=== PATIENT | female | born 1955 | race Caucasian/White ===

== ENCOUNTER 2018-04-03 18:19 | Emergency (ER) | payer MEDICARE, BC ==
--- NOTE | 2018-04-03 20:48 | EDM.PDOC ---
ED HPI GENERAL MEDICAL PROBLEM - General Chief Complaint: Cardiovascular Problem Stated Complaint: HEART PALPATATIONS, DIZZINESS Time Seen by Provider: 04/03/18 18:45 Source of Information: Reports: Patient History Limitations: Reports: No Limitations - History of Present Illness INITIAL COMMENTS - FREE TEXT/NARRATIVE: pt arrived complaining of palpitations for the last 2 weeks. She had a prolonged episode today. She had no chest pain. Onset: Gradual, Other ( This has been going on for several days. ) Duration: Hour(s): Location: Reports: Chest Associated Symptoms: Reports: Other ( irregular heart beat, ) throat Pain Score (Numeric/FACES): 1 - Related Data Allergies Allergy/AdvReac Type Severity Reaction Status Date / Time adhesive tape Allergy Rash Verified 04/03/18 18:58 amoxicillin Allergy Hives Verified 04/03/18 18:58 Penicillins Allergy Hives Verified 04/03/18 18:58 scopolamine Allergy Rash Verified 04/03/18 18:58 vancomycin Allergy Redness Verified 04/03/18 18:58 varenicline [From Chantix] Allergy Rash Verified 04/03/18 18:58 varenicline tartrate Allergy Rash Verified 04/03/18 18:58 [From Chantix] venom-honey bee Allergy Itching Verified 04/03/18 18:58 [bee venom (honey bee)] atorvastatin calcium AdvReac Muscle Verified 04/03/18 18:58 [From Lipitor] Aches NSAIDS (Non-Steroidal AdvReac Nausea Verified 04/03/18 18:58 Anti-Inflamma Home Meds: Home Meds Ibuprofen [Advil] 600 mg PO Q6H PRN 06/03/13 [History] Loratadine [Claritin] 10 mg PO BID 06/03/13 [History] Simvastatin [Zocor] 20 mg PO BEDTIME 06/06/13 [History] buPROPion HCl [Wellbutrin SR] 300 mg PO DAILY 06/06/13 [History] Acetaminophen [Acetaminophen Extra Strength] 1,000 mg PO ASDIRECTED PRN [History] HCTZ/Triamterene [Maxzide 25-37.5 MG] 1 tab PO DAILY 01/28/14 [History] Ranitidine [Zantac] 75 mg PO BID 01/28/14 [History] Aspirin 325 mg PO DAILY 02/07/16 [History] Cholecalciferol (Vitamin D3) [Vitamin D3] 2,000 units PO DAILY 02/07/16 [History ] Gabapentin [Neurontin] 300 mg PO TID 02/07/16 [History] Krill/Om-3/DHA/EPA/Phospho/Ast [Krill Oil 1,000 mg Softgel] 1 cap PO DAILY 02/06 [History] Multivitamin with Minerals [Multiple Vitamin] 1 tab PO DAILY 02/07/16 [History] Ubidecarenone [Coenzyme Q10] 200 mg PO DAILY 02/07/16 [History] Citalopram Hydrobromide [Celexa] 20 mg PO DAILY 01/08/18 [History] Gluc 2KCl/Chondr/[place] Hy/Hy Ac [Glucosamine & Chondroitin Cap] 1 cap PO BID 09/15 [History] Turmeric/Turmeric Ext/Pepr Ext [Turmeric Complex 500 mg Cap] 1 tab PO DAILY 09/15 [History] guaiFENesin/Dextromethorphan [Mucus Relief DM] 1 tab PO BID 01/08/18 [History] Past Medical History HEENT History: Reports: Allergic Rhinitis, Impaired Vision Cardiovascular History: Reports: High Cholesterol, PVD Respiratory History: Reports: COPD, Sleep Apnea Gastrointestinal History: Reports: Colon Polyp, GERD, Hiatal Hernia Genitourinary History: Reports: UTI, Recurrent, Other (See Below) Other Genitourinary History: Bladder tumor/cancer MATHEMATICS LECTURER History: Reports: Dysfunctional Uterine Bleeding, , Spontaneous Musculoskeletal History: Reports: Arthritis, Back Pain, Chronic, Fracture Psychiatric History: Reports: Depression, Panic Attack Endocrine/Metabolic History: Reports: Diabetes, Type II, Obesity/BMI 30+ Hematologic History: Reports: Blood Transfusion(s) Oncologic (Cancer) History: Reports: Bladder - Infectious Disease History Infectious Disease History: Reports: Chicken Pox, Measles - Past Surgical History GI Surgical History: Reports: Cholecystectomy, Colonoscopy, EGD Female Surgical History: Reports: Hysterectomy, Salpingo-Oophorectomy Musculoskeletal Surgical History: Reports: Carpal Tunnel Social & Family History - Tobacco Use Smoking Status *Q: Current Every Day Smoker Years of Tobacco use: 43 Packs/Tins Daily: 0.7 - Caffeine Use Caffeine Use: Reports: Coffee - Recreational Drug Use Recreational Drug Use: No ED ROS GENERAL - Review of Systems Review Of Systems: See Below Constitutional: Reports: No Symptoms HEENT: Reports: No Symptoms Respiratory: Reports: Shortness of Breath Cardiovascular: Reports: Palpitations Endocrine: Reports: No Symptoms GI/Abdominal: Reports: No Symptoms : Reports: No Symptoms Musculoskeletal: Reports: No Symptoms Skin: Reports: No Symptoms ED EXAM, GENERAL - Physical Exam Exam: See Below Free Text/Narrative:: pt is alert and comfortaBLE APPEARING. sHE HAS BEEN HAVING PALITATIONS FOR THE PAST 2 WEEKS. Exam Limited By: No Limitations General Appearance: Alert, No Apparent Distress Ears: Normal TMs Nose: Normal Inspection Throat/Mouth: Normal Inspection Head: Atraumatic Neck: Normal Inspection Respiratory/Chest: No Respiratory Distress Cardiovascular: Regular Rate, Rhythm, Other (PT WAS NOT FOUND RICARDO HAVE IRREGULARITIES. ) GI/Abdominal: Soft, Non-Tender (Female) Exam: Deferred Rectal (Female) Exam: Deferred Back Exam: Normal Inspection Extremities: Normal Inspection Neurological: Alert, Oriented, Normal Cognition Psychiatric: Normal Affect Course - Vital Signs Last Recorded V/S: Last Vital Signs Temp 36.2 C 04/03/18 19:05 Pulse 74 04/03/18 20:00 Resp 16 04/03/18 20:00 BP 134/79 04/03/18 20:00 Pulse Ox 91 L 04/03/18 20:00 - Orders/Labs/Meds Orders: Active Orders 24 hr Category Date Time Status EKG Documentation Completion [RC] ASDIRECTED Care 04/03/18 18:47 Active UA W/MICROSCOPIC [URIN] Urgent Lab 04/03/18 18:47 Ordered EKG 12 Lead [EK] Routine Ther 04/03/18 18:47 Ordered Labs: Laboratory Tests 04/03/18 04/03/18 04/03/18 Range/Units 18:47 18:59 18:59 WBC 7.5 (4.5-11.0) K/uL RBC 4.99 (3.30-5.50) M/uL Hgb 15.9 H (12.0-15.0) g/dL Hct 45.7 (36.0-48.0) % MCV 92 (80-98) fL MCH 32 H (27-31) pg MCHC 35 (32-36) % Plt Count 201 (150-400) K/uL Neut % (Auto) 59 (36-66) % Lymph % (Auto) 30 (24-44) % [place] % (Auto) 10 H (2-6) % Eos % (Auto) 1 L (2-4) % Baso % (Auto) 0 (0-1) % Sodium (140-148) mmol/L Potassium (3.6-5.2) mmol/L Chloride (100-108) mmol/L Carbon Dioxide (21-32) mmol/L Anion Gap (5.0-14.0) mmol/L BUN (7-18) mg/dL Creatinine (0.6-1.0) mg/dL Est Cr Clr Drug Dosing mL/min Estimated GFR (MDRD) (>60) Glucose (74-106) mg/dL Calcium (8.5-10.1) mg/dL Total Bilirubin (0.2-1.0) mg/dL AST (15-37) U/L ALT (12-78) U/L Alkaline Phosphatase (46-116) U/L Troponin I (0.000-0.056) ng/mL Total Protein (6.4-8.2) g/dL Albumin (3.4-5.0) g/dL Globulin (2.3-3.5) g/dL Albumin/Globulin Ratio (1.2-2.2) TSH, Ultra Sensitive 0.850 (0.358-3.740) uIU/mL Urine Color Yellow Urine Appearance Clear Urine pH 7.0 (4.5-8.0) Ur Specific [place] 1.010 (1.008-1.030) Urine Protein Negative (NEGATIVE) mg/dL Urine Glucose (UA) Normal (NEGATIVE) mg/dL Urine Ketones Negative (NEGATIVE) mg/dL Urine Occult Blood Negative (NEGATIVE) Urine Nitrite Negative (NEGATIVE) Urine Bilirubin Negative (NEGATIVE) Urine Urobilinogen Normal (NORMAL) mg/dL Ur Leukocyte Esterase Negative (NEGATIVE) Urine RBC Not seen (0-5) Urine WBC 0-5 (0-5) Ur Epithelial Cells Few Urine Bacteria Few Urine Mucus Few 04/03/18 04/03/18 Range/Units 18:59 18:59 WBC (4.5-11.0) K/uL RBC (3.30-5.50) M/uL Hgb (12.0-15.0) g/dL Hct (36.0-48.0) % MCV (80-98) fL MCH (27-31) pg MCHC (32-36) % Plt Count (150-400) K/uL Neut % (Auto) (36-66) % Lymph % (Auto) (24-44) % [place] % (Auto) (2-6) % Eos % (Auto) (2-4) % Baso % (Auto) (0-1) % Sodium 138 L (140-148) mmol/L Potassium 4.3 (3.6-5.2) mmol/L Chloride 102 (100-108) mmol/L Carbon Dioxide 27 (21-32) mmol/L Anion Gap 13.3 (5.0-14.0) mmol/L BUN 9 D (7-18) mg/dL Creatinine 0.7 D (0.6-1.0) mg/dL Est Cr Clr Drug Dosing 72.88 mL/min Estimated GFR (MDRD) > 60 (>60) Glucose 94 (74-106) mg/dL Calcium 9.3 (8.5-10.1) mg/dL Total Bilirubin 0.3 (0.2-1.0) mg/dL AST 22 (15-37) U/L ALT 29 (12-78) U/L Alkaline Phosphatase 81 (46-116) U/L Troponin I < 0.017 (0.000-0.056) ng/mL Total Protein 7.0 (6.4-8.2) g/dL Albumin 3.4 (3.4-5.0) g/dL Globulin 3.6 H (2.3-3.5) g/dL Albumin/Globulin Ratio 0.9 L (1.2-2.2) TSH, Ultra Sensitive (0.358-3.740) uIU/mL Urine Color Urine Appearance Urine pH (4.5-8.0) Ur Specific [place] (1.008-1.030) Urine Protein (NEGATIVE) mg/dL Urine Glucose (UA) (NEGATIVE) mg/dL Urine Ketones (NEGATIVE) mg/dL Urine Occult Blood (NEGATIVE) Urine Nitrite (NEGATIVE) Urine Bilirubin (NEGATIVE) Urine Urobilinogen (NORMAL) mg/dL Ur Leukocyte Esterase (NEGATIVE) Urine RBC (0-5) Urine WBC (0-5) Ur Epithelial Cells Urine Bacteria Urine Mucus - Re-Assessments/Exams Free Text/Narrative Re-Assessment/Exam: 04/03/18 20:47 LAB WORK WAS NORMAL. a NORMAL EKG. hER VITALS ARE STABLE AND HER RHYTHM IS GOOD. Departure - Departure Time of Disposition: 20:48 Disposition: Home, Self-Care 01 Condition: Fair Clinical Impression: Palpitations Referrals: Bolivar Burns PA [Primary Care Provider] - Care Plan Goals: EVENT RECORDER, FOLLOW UP WITH [facility] - My Orders Last 24 Hours: My Active Orders 04/03/18 18:47 EKG Documentation Completion [RC] ASDIRECTED UA W/MICROSCOPIC [URIN] Urgent EKG 12 Lead [EK] Routine - Assessment/Plan Last 24 Hours: My Active Orders 04/03/18 18:47 EKG Documentation Completion [RC] ASDIRECTED UA W/MICROSCOPIC [URIN] Urgent EKG 12 Lead [EK] Routine
[2018-04-03 21:06] VITALS: BP 136/76
== END 2018-04-03 21:08 | disposition home or self-care (01) ==
LOC: JP.ED 18:19
DX: R00.2 Palpitations (principal); F17.210 Nicotine dependence, cigarettes, uncomplicated; E78.00 Pure hypercholesterolemia, unspecified; J44.9 Chronic obstructive pulmonary disease, unspecified; F32.9 Major depressive disorder, single episode, unspecified; E11.9 Type 2 diabetes mellitus without complications; Z79.82 Long term (current) use of aspirin; Z79.899 Other long term (current) drug therapy; Z88.8 Allergy status to other drugs, medicaments and biological substances; Z88.0 Allergy status to penicillin; Z88.1 Allergy status to other antibiotic agents; Z91.030 Bee allergy status
CPT/HCPCS: 36415; 80053; 81001; 84443; 84484; 85025; 93005; 99285-25

== ENCOUNTER 2018-05-19 05:28 | Inpatient (IN) | payer MEDICARE, BC ==
[2018-05-19] MEDS ORDERED: Gabapentin 300 MG Cap PO ONE (05:30)
[2018-05-19] MEDS ORDERED: Acetaminophen 500 MG Tab PO ONE (05:30)
[2018-05-19] MEDS ORDERED: Dextrose 5%-Lactated Ringers 1,000 ML IV SCH (06:00)
[2018-05-19] MEDS ORDERED: Bupivacaine 0.5%/EPINEPHrine 1:200,000 50 ML MDV ONE (06:45)
[2018-05-19] MEDS ORDERED: Glycopyrrolate 0.2 MG/ML 5 ML MDV ONE (07:09)
[2018-05-19] MEDS ORDERED: Ondansetron 4 MG/2 ML SDV ONE (07:09)
[2018-05-19] MEDS ORDERED: Dexamethasone 4 MG/ML SDV ONE (07:09)
[2018-05-19] MEDS ORDERED: Rocuronium 50 MG/5 ML Vial ONE ×2 (07:09→07:53)
[2018-05-19] MEDS ORDERED: Neostigmine Methylsulfate 1 MG/ML 5 ML Syringe ONE (07:09)
[2018-05-19] MEDS ORDERED: Succinylcholine 200 MG/10 ML MDV ONE (07:09)
[2018-05-19] MEDS ORDERED: Propofol 200 MG/20 ML SDV ONE (07:09)
[2018-05-19] MEDS ORDERED: fentaNYL 250 MCG/5 ML SDV ONE ×2 (07:10→07:52)
[2018-05-19] MEDS ORDERED: cefOXitin 2 GM in Sodium Chloride 0.9% 50 ML IV ONE (07:15)
[2018-05-19] MEDS ORDERED: Naloxone 0.4 MG/ML SDV IV PRN (07:20)
[2018-05-19] MEDS ORDERED: HYDROmorphone/Normal Saline 15 MG/30 ML PCA IV PRN (07:20)
[2018-05-19] MEDS ORDERED: HYDROmorphone/Normal Saline 15 MG/30 ML PCA IV SCH (07:30)
[2018-05-19] MEDS ORDERED: Ropivacaine 51 ML, Dexamethasone 8 MG, EPINEPHrine 0.4 MG, Sodium Chloride 0.9% 26.6 ML NERVRT SCH ×4 (07:30)
[2018-05-19] MEDS ORDERED: Ketamine 500 MG/5 ML MDV IV SCH (07:30)
[2018-05-19] MEDS ORDERED: Insulin Aspart 100 Units/ML 3 ML Pen SUBCUT ONE (09:15)
[2018-05-19] MEDS ORDERED: Glucagon,Human Recombinant 1 MG Vial IM PRN (10:35)
[2018-05-19] MEDS ORDERED: Insulin Aspart 100 Units/ML 3 ML Pen SUBCUT PRN (10:35)
[2018-05-19] MEDS ORDERED: 50% Dextrose in Water 50 ML Syringe IVPUSH PRN (10:35)
[2018-05-19] MEDS ORDERED: Glucose Gel 15 GM in 37.5 GM Tube PO PRN (10:35)
[2018-05-19] MEDS ORDERED: Ondansetron 4 MG/2 ML SDV IVPUSH PRN (10:51)
[2018-05-19] MEDS: Lactated Ringers 1,000 ML IV SCH ×2 (10:59→18:34)
[2018-05-19] MEDS: Metoclopramide 10 MG/2 ML SDV IVPUSH SCH ×2 (13:40→20:43)
[2018-05-19] MEDS: buPROPion 150 MG Tab.ER PO SCH (13:48)
[2018-05-19] MEDS: Gabapentin 300 MG Cap PO SCH ×2 (13:48→20:43)
[2018-05-19] MEDS: Citalopram 20 MG Tab PO SCH (13:49)
[2018-05-19] MEDS: Loratadine 10 MG Tab PO SCH (13:49)
[2018-05-19] MEDS: Allopurinol 300 MG Tab PO SCH (13:50)
[2018-05-19] MEDS: Hydrochlorothiazide/Triamterene 25-37.5 Tab PO SCH (13:50)
[2018-05-19] MEDS: ceFAZolin 2 GM in Sodium Chloride 0.9% 50 ML IV SCH ×2 (13:55→22:00)
[2018-05-19] MEDS ORDERED: buPROPion 150 MG Tab.SR PO SCH (14:00)
[2018-05-19] MEDS ORDERED: Pantoprazole 40 MG Vial IV SCH (14:00)
[2018-05-19] MEDS: Nicotine 21 MG/24 Hr Patch TRDERM SCH (15:06)
[2018-05-19] MEDS: Simvastatin 20 MG Tab PO SCH (20:46)
[2018-05-20] MEDS: Metoclopramide 10 MG/2 ML SDV IVPUSH SCH ×2 (02:44→07:55)
[2018-05-20] MEDS: Lactated Ringers 1,000 ML IV SCH (03:16)
[2018-05-20] MEDS: ceFAZolin 2 GM in Sodium Chloride 0.9% 50 ML IV SCH (05:46)
[2018-05-20] MEDS ORDERED: Lactated Ringers 1,000 ML IV SCH ×2 (07:36→08:00)
[2018-05-20] MEDS: Nicotine 21 MG/24 Hr Patch TRDERM SCH (08:01)
[2018-05-20] MEDS: Allopurinol 300 MG Tab PO SCH (08:02)
[2018-05-20] MEDS: Citalopram 20 MG Tab PO SCH (08:02)
[2018-05-20] MEDS: Loratadine 10 MG Tab PO SCH (08:02)
[2018-05-20] MEDS: Aspirin 325 MG Tab.EC PO SCH (08:02)
[2018-05-20] MEDS: buPROPion 150 MG Tab.ER PO SCH (08:03)
[2018-05-20] MEDS: Gabapentin 300 MG Cap PO SCH ×3 (08:03→21:24)
[2018-05-20] MEDS: Hydrochlorothiazide/Triamterene 25-37.5 Tab PO SCH (08:03)
[2018-05-20] MEDS ORDERED: amLODIPine 5 MG Tab PO SCH (09:00)
[2018-05-20] MEDS: metFORMIN 500 MG Tab PO SCH ×2 (09:39→16:52)
[2018-05-20] MEDS: Tamsulosin 0.4 MG Cap.ER PO SCH ×2 (09:39→16:52)
[2018-05-20] MEDS ORDERED: Ondansetron 4 MG Tab.DIS PO PRN (10:28)
--- NOTE | 2018-05-20 10:51 | PN ---
DATE OF SERVICE: 05/20/2018 SUBJECTIVE: Ethel is postop day 1 following a laparoscopic Harjit fundoplication. She did have urinary retention, and had the Fried catheter placed. She did have bladder cancer in 2008 or 2009 and she has noticed that she has had difficulty with urinating in the past year. She states that unless her bladder is completely full. She has no urgency to urinate. Pain is controlled tolerating a clear liquid diet. Blood sugars were elevated in recovery room, was over 200. Accu-Chek's checked at bedside were 151 and 131. Her hemoglobin A1c was checked and it was 7. She states she did have diabetes several years ago, lost 50 pounds and the diabetes went away. She does have a glucometer at home and her will bring it in. REVIEW OF SYSTEMS: Remainder of review of systems negative for any pertinent positives and negatives. OBJECTIVE: GENERAL: Ethel Navarrete is a 63-year-old female. She is alert and orientated. VITAL SIGNS: TPR is 97.5, 72, 16. Blood pressure 120/65. HEENT: Negative. NECK: Supple. HEART: Regular rate and rhythm. LUNGS: Clear. ABDOMEN: Dressings are dry and intact. Abdominal binder is on. EXTREMITIES: Without peripheral edema. ASSESSMENT: Laparoscopic Harjit fundoplication. PLAN: 1. Discontinue Fried catheter , May 21 at 0400. 2. Full liquid diet. 3. Tylenol 650 mg q.4 hours p.r.n. pain. 4. Dilaudid 2 mg q.4 hours p.r.n. pain. 5. Discontinue ASSEMBLER GOLD FRAME and continuous pulse ox. 6. Metformin 1000 mg p.o. b.i.d.. 7. Flomax 0.4 mg p.o. b.i.d. 8. Decrease Lactated Ringer's to 100 mL per hour. 9. Diabetic education and dietary consult for new diabetes and Accu-Chek education and education with lap Harjit. 10.Dressing off, january shower. 11.We will evaluate p.r.n. or in a.m. Honey Hayes PA-C /[id number]
[2018-05-20] MEDS: Acetaminophen 325 MG Tab PO PRN ×2 (11:14→19:46)
[2018-05-20] MEDS: Simvastatin 20 MG Tab PO SCH (21:24)
[2018-05-20] MEDS: HYDROmorphone 2 MG Tab PO PRN (21:24)
[2018-05-21 07:18] VITALS: BP 120/67
[2018-05-21] MEDS ORDERED: metFORMIN 500 MG Tab PO SCH (08:00)
[2018-05-21] MEDS: Citalopram 20 MG Tab PO SCH (08:26)
[2018-05-21] MEDS: Tamsulosin 0.4 MG Cap.ER PO SCH (08:26)
[2018-05-21] MEDS: Loratadine 10 MG Tab PO SCH (08:27)
[2018-05-21] MEDS: Aspirin 325 MG Tab.EC PO SCH (08:27)
[2018-05-21] MEDS: Nicotine 21 MG/24 Hr Patch TRDERM SCH (08:28)
[2018-05-21] MEDS: buPROPion 150 MG Tab.ER PO SCH (08:29)
[2018-05-21] MEDS: Gabapentin 300 MG Cap PO SCH (08:29)
[2018-05-21] MEDS: Allopurinol 300 MG Tab PO SCH (08:30)
[2018-05-21] MEDS: HYDROmorphone 2 MG Tab PO PRN (08:38)
[2018-05-21] MEDS: Hydrochlorothiazide/Triamterene 25-37.5 Tab PO SCH (08:40)
--- NOTE | 2018-05-21 08:49 | DISCH ---
ADMISSION DIAGNOSIS: Gastroesophageal reflux disease refractory to medical management, dyslipidemia, nicotine addiction, morbid obesity, chronic obstructive pulmonary disease, malignant neoplasm of the bladder, benign hypertension, diabetes type 2, peripheral vascular disease, sleep-related hypoxia, panic attack, lumbar spinal stenosis, tubular adenoma of colon, fatigue, obstructive sleep apnea, hyperplastic colon polyps, androgenetic alopecia, gout, aneurysm of abdominal aorta, generalized anxiety disorder, mild recurrent major depression. DISCHARGE DIAGNOSES: Laparoscopic Harjit fundoplication for GERD refractory to medical management. Date of surgery 05/19/2018. HISTORY: Ethel Navarrete is a pleasant 63-year-old female with longstanding history of GERD refractory to medical management. After preoperative evaluation and discussion of possible risks and possible complications, she wished to proceed with surgical procedure. HOSPITAL COURSE: Ethel had her surgery on 05/19/2018. In recovery room, her blood sugar was 233. Accu-Cheks were elevated. Her hemoglobin A1c was checked and it was 7. On postoperative day 1, she was started on a step-2 gastric bypass diet, metformin to manage blood sugars and she had diabetic education. On postoperative day 2, she was able to be discharged to home without any complications. She was able to check her blood sugars and demonstrate competency and was knowledgeable of a full liquid diet. Pain was well managed and activity was good. Vital signs stable. PHYSICAL EXAMINATION: GENERAL: Ethel Navarrete is a pleasant 63-year-old female. VITAL SIGNS: Height is 5 feet 4 inches. Weight is 222 pounds. TPR is 98.1, 78, 15, blood pressure 120/67. HEENT: Negative. NECK: Supple. HEART: Regular rate and rhythm. LUNGS: Clear. ABDOMEN: Sutures intact. Incisions look good. Abdominal binder is on. EXTREMITIES: Without peripheral edema. DISPOSITION: Discharged home. CONDITION: Stable and improving. FOLLOWUP APPOINTMENT: With Stephon Rodríguez MD, on 05/27/2018 at 8:45 a.m. HOME MEDICATIONS: 1. Tylenol 650 mg oral q.4 hours p.r.n. pain. 2. Dilaudid 2 mg one to two every 4 hours p.r.n. pain #40. 3. Metformin 500 mg b.i.d. #60 and 5 refills. She is to resume her home medications: 1. Zyloprim 300 mg oral daily. 2. Aspirin 325 mg oral daily. 3. Celexa 20 mg oral daily. 4. Neurontin 600 mg oral 3 times a day. 5. Glucosamine chondroitin 1 capsule daily. 6. Maxzide 25/37.5 one tablet daily. 7. Indocin 50 mg oral 3 times a day p.r.n. 8. Krill oil one capsule oral daily. 9. Claritin 10 mg oral twice daily. 10.Protonix 40 mg oral twice daily. 11.Zocor 20 mg at bedtime. 12.Turmeric complex 500 mg one tablet oral daily. 13.Coenzyme Q10, 100 mg oral daily. 14.Bupropion XL 300 mg oral daily. 15.Mucus relief one tablet oral twice daily. DISCHARGE DIET: Diet after discharge, full liquid diet for 2 weeks. ACTIVITY: As tolerated. No lifting greater than 10 pounds for 2 weeks. Other activity, walk at least 6 times daily inside your home. Driving, do not drive while on pain medication. May shower. DISCHARGE INSTRUCTIONS: Notify provider if any fever, increased pain, swelling, redness, drainage, nausea, or vomiting. Keep site clean and dry. Wear abdominal binder for 2 weeks and then as tolerated. SPECIAL INSTRUCTIONS: Use incentive spirometer 10 times every hour while awake. Check blood sugars as directed by personal development educator 4 times a day and bring blood sugar results to clinic appointment.
--- NOTE | 2018-05-22 08:20 | OR ---
DATE OF PROCEDURE: 05/19/2018 PREOPERATIVE DIAGNOSIS: Gastroesophageal reflux disease refractory to medical management. POSTOPERATIVE DIAGNOSES: 1. Gastroesophageal reflux disease refractory to medical management associated with large paraesophageal diaphragmatic hernia. 2. Lipomatous peritoneal implant, left upper quadrant, anterior abdominal wall. OPERATIVE PROCEDURES: 1. Laparoscopic Harjit fundoplication with concurrent repair of paraesophageal diaphragmatic hernia with mesh (70728). 2. Excision of lipomatous peritoneal implant, left upper quadrant, anterior abdominal wall ([id number]). ANESTHESIA: General. INDICATION FOR PROCEDURE: This is a 63-year-old female presenting with progressively worsening gastroesophageal reflux disease. After preoperative evaluation and discussion, she wished to proceed with a Harjit fundoplication. Potential risks including bleeding, infection, injury to underlying viscera, problems with fundoplication such as dysphagia, gas- bloat syndrome, disorders of gastric emptying rate, as well as the possibility of cardiopulmonary, septic, or hemorrhagic complications leading to were discussed, and the patient wishes to proceed. DETAILS OF PROCEDURE: The patient was taken to the operating room and after general endotracheal anesthesia was induced, was placed in a lithotomy position. A Fried catheter was placed, and the abdomen was prepped and draped. At 15 cm inferior and 5 cm left of xiphoid process, transverse incision was made, and the peritoneal cavity entered under direct vision with an Optiview trocar and inflated to 15 mmHg pressure with CO2. Laparoscope was then reinserted. No underlying trocar insertion site injuries were seen. Following this, bilateral subcostal transversus abdominis plane blocks were placed using standard solution with direct visualization of the needle position from within. The liver was then retracted anteriorly. The patient was noted to have a major paraesophageal component to her diaphragmatic hernia. This contained a tongue of omentum prolapsing anterior to the course of the esophagus. This was reduced along with the diaphragmatic hernia. The peritoneum along the distal esophagus on each side was then incised with Harmonic scalpel as was then the peritoneum anterior to the area of the esophagogastric junction and up along the area of the diaphragmatic hernia. This was reflected downward. The esophagus was then freed up from the crura on each side, and then retroesophageal window was established. The attachments to the esophagus were then divided with a Harmonic scalpel until roughly 5 cm intraabdominal esophageal length was accomplished. The posterior crural repair was accomplished with a series of 0 Ethibond sutures reinforced with PTFE pledgets. Due to the size of defect, this was then reinforced with a Phasix ST mesh, cut such that it lay behind the esophagus overlying the crural repair and slightly alongside of the crura. This was fixed such that the Seprafilm side of the mesh faced the esophagus and was fixed in position with some titanium tacking screws to the crural edges. At this point, the patient was noted to have a fairly prominent-appearing lipomatous type peritoneal implant located in the anterior abdominal wall. This was excised using Harmonic scalpel and measured around 3 mm in size and sent for histologic evaluation. The omentum was then taken down from the mid-greater curvature with Harmonic scalpel and the omental attachments were continued to be divided with Harmonic scalpel, then extending up into the short gastric including the highest and posterior short gastric vessels. Once this area was well freed up, the fundus was then pulled through the retroesophageal window. Anesthesia then passed a guidewire orally through the length of the esophagus and into the stomach. Over this, a 54-Haitian Savary dilator was positioned. A three-stitch 2 cm fundoplication was then accomplished using 0 Ethibond sutures reinforced with PTFE pledgets. Each of the sutures included bites of the underlying esophagus to help fix it in position. A stitch and pledget combination was then used to fix the left and then the right side of the fundoplication to the overlying diaphragm to help fix it in position as well. At that point, no further problems were noted. The dilator and wire were removed and no further problems noted. The fundoplication was noted to be satisfactorily floppy. Trocars were then sequentially removed. The fascia at the 12 mm site was closed with 0 Vicryl stitch, and the skin with 4-0 Vicryl skin stitch at each incision. The patient was taken to the recovery room in a satisfactory condition. There were no evident complications. Stephon Rodríguez MD /[id number]
== END 2018-05-21 12:30 | disposition home or self-care (01) | DRG 327 ==
LOC: JP.SDS 05:28 → EDSTATUS 08:45 → JP.MS 09:00 → JP.2SS 09:01
PROVIDERS: ADMIT Surgery; ATTEND Surgery
PROC: 0DV44ZZ Restriction of Esophagogastric Junction, Percutaneous Endoscopic Approach (ICD-10-PCS; principal; 2018-05-19)
PROC: 0BUT4JZ Supplement Diaphragm with Synthetic Substitute, Percutaneous Endoscopic Approach (ICD-10-PCS; 2018-05-19)
PROC: 3E0T3BZ Introduction of Anesthetic Agent into Peripheral Nerves and Plexi, Percutaneous Approach (ICD-10-PCS; 2018-05-19)
DX: K21.9 Gastro-esophageal reflux disease without esophagitis (principal); F33.9 Major depressive disorder, recurrent, unspecified; K44.9 Diaphragmatic hernia without obstruction or gangrene; D17.79 Benign lipomatous neoplasm of other sites; I10 Essential (primary) hypertension; F17.210 Nicotine dependence, cigarettes, uncomplicated; E78.5 Hyperlipidemia, unspecified; R33.9 Retention of urine, unspecified; Z85.51 Personal history of malignant neoplasm of bladder; Z86.39 Personal history of other endocrine, nutritional and metabolic disease; M1A.0710 Idiopathic chronic gout, right ankle and foot, without tophus (tophi); G47.33 Obstructive sleep apnea (adult) (pediatric); Z99.89 Dependence on other enabling machines and devices; H54.7 Unspecified visual loss; E11.9 Type 2 diabetes mellitus without complications; Z79.84 Long term (current) use of oral hypoglycemic drugs; E66.01 Morbid (severe) obesity due to excess calories; Z68.38 Body mass index [BMI] 38.0-38.9, adult; J44.9 Chronic obstructive pulmonary disease, unspecified; I73.9 Peripheral vascular disease, unspecified; G47.34 Idiopathic sleep related nonobstructive alveolar hypoventilation; M48.061 Spinal stenosis, lumbar region without neurogenic claudication; F41.1 Generalized anxiety disorder; L64.9 Androgenic alopecia, unspecified; Z87.19 Personal history of other diseases of the digestive system; Z88.6 Allergy status to analgesic agent; Z88.1 Allergy status to other antibiotic agents; Z91.030 Bee allergy status; Z88.8 Allergy status to other drugs, medicaments and biological substances; Z91.048 Other nonmedicinal substance allergy status; Z79.82 Long term (current) use of aspirin
CPT/HCPCS: 36415; 51702; 80053; 82962; 83036; 83735; 83880; 84100; 85027; 88305; 94762; A9270-GY; C1781; C9113; J0171; J0330; J0690; J0694; J1100; J1170; J2405; J2704; J2710; J2765; J2795; J3010; J3490; J7042; J7050; J7120

== ENCOUNTER 2019-02-12 06:32 | Day surgery (SDC) | payer MEDICARE, BC ==
[2019-02-12] MEDS ORDERED: Lactated Ringers 1,000 ML IV SCH (07:15)
[2019-02-12] MEDS ORDERED: Propofol 200 MG/20 ML SDV ONE ×2 (07:24→08:19)
[2019-02-12] MEDS ORDERED: Midazolam 1 MG/ML 2 ML SDV ONE (07:25)
[2019-02-12] MEDS ORDERED: fentaNYL 100 MCG/2 ML SDV ONE (07:25)
[2019-02-12 10:44] VITALS: BP 128/70
--- NOTE | 2019-02-12 15:07 | OR ---
DATE OF PROCEDURE: 02/12/2019 PREOPERATIVE DIAGNOSIS: History of colon polyps. POSTOPERATIVE DIAGNOSES: Diverticulosis, multiple small polyps, history of polyps. PROCEDURE PERFORMED: Colonoscopy to the cecum with biopsy resection of polyps at 20 cm from the anal verge, 3 at hepatic flexure sent to the laboratory as 1 specimen, and at transverse colon. SURGEON: Moy Marion MD ANESTHESIA: IV anesthesia with monitored anesthesia care. INDICATION: This 64-year-old white female is here for a colonoscopy. Her last colonoscopic exam she says was done three years ago. She has a history of polyps. I counseled her for the procedure, including risks and alternatives, and she gave her informed consent to proceed. DESCRIPTION OF PROCEDURE: The patient was placed in the left lateral decubitus position. IV anesthesia was administered by the Anesthesia Service. Time-out was held. A rectal exam was performed, which was unremarkable. The flexible video Olympus colonoscope was introduced through her anus, up her rectum, and out her colon all way to the cecum. En route, at 20 cm from the anal verge, we saw a small polyp, which was removed with the biopsy forceps. Additionally, in the left colon, we saw a single diverticulum. There was no bleeding or inflammation associated with it. At the hepatic flexure, we saw 3 polyps. They were all in the same area. These were removed with the biopsy forceps and sent to the laboratory as 1 specimen. Once the cecum was reached, the scope was slowly withdrawn, examining the mucosa throughout. No additional mucosal abnormalities were noted. The scope was retroflexed in the rectum with the distal rectum appearing unremarkable. The scope was straightened and removed. She tolerated the procedure well. Moy Marion MD /[id number]
== END 2019-02-12 10:45 | disposition home or self-care (01) ==
LOC: JP.SDS 06:32
PROVIDERS: ATTEND Surgery
DX: Z12.11 Encounter for screening for malignant neoplasm of colon (principal); D12.2 Benign neoplasm of ascending colon; K63.5 Polyp of colon; K57.30 Diverticulosis of large intestine without perforation or abscess without bleeding; K21.9 Gastro-esophageal reflux disease without esophagitis; E11.9 Type 2 diabetes mellitus without complications; E78.00 Pure hypercholesterolemia, unspecified; I10 Essential (primary) hypertension; J44.9 Chronic obstructive pulmonary disease, unspecified; F17.200 Nicotine dependence, unspecified, uncomplicated; F41.9 Anxiety disorder, unspecified; G47.33 Obstructive sleep apnea (adult) (pediatric); Z86.010 Personal history of colon polyps
CPT/HCPCS: 45380; 88305; J2250; J2704; J3010; J7120

== ENCOUNTER 2022-03-11 06:31 | Day surgery (SDC) | payer MEDICARE, BC ==
[2022-03-11] MEDS ORDERED: Propofol 200 MG/20 ML SDV ONE (07:01)
[2022-03-11] MEDS ORDERED: Midazolam 1 MG/ML 2 ML SDV ONE (07:02)
[2022-03-11] MEDS ORDERED: fentaNYL 100 MCG/2 ML SDV ONE (07:02)
[2022-03-11] MEDS ORDERED: Dextrose 5%-Lactated Ringers 1,000 ML IV SCH (07:15)
[2022-03-11 09:31] VITALS: BP 123/74; PULSE 79
== END 2022-03-11 09:48 | disposition home or self-care (01) ==
LOC: JP.SDS 06:31
PROVIDERS: ATTEND Surgery
DX: Z12.11 Encounter for screening for malignant neoplasm of colon (principal); D12.3 Benign neoplasm of transverse colon; K64.9 Unspecified hemorrhoids; I10 Essential (primary) hypertension; J44.9 Chronic obstructive pulmonary disease, unspecified; G47.33 Obstructive sleep apnea (adult) (pediatric); F17.200 Nicotine dependence, unspecified, uncomplicated
CPT/HCPCS: 45385; 88305; J2250; J2704; J3010; J7121

== ENCOUNTER 2023-01-17 07:58 | Day surgery (SDC) | payer MEDICARE, BC ==
[~2023-01-17 07:58] MED LIST: Midazolam 1 MG/ML 2 ML SDV ONE; Propofol 200 MG/20 ML SDV ONE; fentaNYL 50 MCG/ML SDV ONE
[2023-01-17] MEDS ORDERED: Dextrose 5%-Lactated Ringers 1,000 ML IV SCH (09:00)
[2023-01-17] MEDS ORDERED: Pantoprazole 40 MG Vial IVPUSH ONE (10:10)
[2023-01-17] MEDS ORDERED: Pantoprazole 40 MG Vial ONE (10:16)
[2023-01-17 11:20] VITALS: BP 142/75; PULSE 66
== END 2023-01-17 11:34 | disposition home or self-care (01) ==
LOC: JP.SDS 07:58
PROVIDERS: ATTEND Surgery
DX: K21.9 Gastro-esophageal reflux disease without esophagitis (principal); K44.9 Diaphragmatic hernia without obstruction or gangrene; G47.33 Obstructive sleep apnea (adult) (pediatric); J44.9 Chronic obstructive pulmonary disease, unspecified; F41.9 Anxiety disorder, unspecified; F32.A Depression, unspecified; I10 Essential (primary) hypertension; E11.9 Type 2 diabetes mellitus without complications; Z98.890 Other specified postprocedural states; Z79.899 Other long term (current) drug therapy; Z88.1 Allergy status to other antibiotic agents; Z88.8 Allergy status to other drugs, medicaments and biological substances
CPT/HCPCS: 43239; 87081; C9113; J2250; J2704; J3010; J7121

== ENCOUNTER 2024-01-22 08:09 | Day surgery (SDC) | payer MEDICARE, BC ==
[2024-01-22 09:33] VITALS: BP 115/70; PULSE 79
[2024-01-22] MEDS: Sodium Chloride 0.9% 10 ML Syringe FLUSH PRN (09:35)
== END 2024-01-22 09:49 | disposition home or self-care (01) ==
LOC: JP.SDS 08:09
PROVIDERS: ATTEND Ophthalmology
DX: H26.9 Unspecified cataract (principal); J44.9 Chronic obstructive pulmonary disease, unspecified; K21.9 Gastro-esophageal reflux disease without esophagitis; E11.9 Type 2 diabetes mellitus without complications; E66.9 Obesity, unspecified
CPT/HCPCS: 66984; J3490; V2632

== ENCOUNTER 2024-02-05 08:13 | Day surgery (SDC) | payer MEDICARE, BC ==
[2024-02-05] MEDS: Sodium Chloride 0.9% 10 ML Syringe FLUSH PRN (08:53)
[2024-02-05 09:31] VITALS: BP 146/73; PULSE 82
== END 2024-02-05 09:33 | disposition home or self-care (01) ==
LOC: JP.SDS 08:13
PROVIDERS: ATTEND Ophthalmology
DX: H25.12 Age-related nuclear cataract, left eye (principal)
CPT/HCPCS: 66984; J3490; V2632

== ENCOUNTER 2025-03-22 00:12 | Emergency (ER) | payer MEDICARE, BC ==
[2025-03-22 00:39] LABS: BASOPHILS ABSOLUTE AUTO 0.04 K/uL (0.00-0.10); BASOPHILS PERCENT AUTO 0.4 % (0.1-1.3); EOSINOPHILS ABSOLUTE AUTO 0.08 K/uL (0.00-0.40); EOSINOPHILS PERCENT AUTO 0.9 % (0.0-5.4); HEMATOCRIT 41.8 % (34.3-46.0); HEMOGLOBIN 14.3 g/dL (11.2-15.5); IMMATURE GRAN ABSOLUTE AUTO 0.04 K/uL (0.00-0.23); IMMATURE GRAN PERCENT AUTO 0.4 % (0.0-0.7); LYMPHOCYTES ABSOLUTE AUTO 2.97 K/uL (0.8-3.3); LYMPHOCYTES PERCENT AUTO 31.7 % (11.4-47.7); MEAN CORPUSCULAR HEMOGLOBIN 32.8 pg (31.6-35.5); MEAN CORPUSCULAR HGB CONC 34.2 g/dL (31.6-35.5); MEAN CORPUSCULAR VOLUME 95.9 fL (81.4-99.0); MONOCYTES ABSOLUTE AUTO 0.76 K/uL (0.20-0.90); MONOCYTES PERCENT AUTO 8.1 % (3.3-12.6); NEUTROPHILS ABSOLUTE AUTO 5.48 K/uL (1.0-7.6); NEUTROPHILS PERCENT AUTO 58.5 % (40.0-78.1); PLATELET COUNT,PLT 223 K/uL (130-375); RED BLOOD CELL COUNT 4.36 M/uL (3.77-5.24); WHITE BLOOD CELL COUNT,WBC 9.4 K/uL (3.2-11.0)
[2025-03-22 01:08] LABS: A/G RATIO 0.8 (1.2-2.2); ALANINE AMINOTRANSFERASE,ALT 24 U/L (12-78); ALKALINE PHOSPHATASE 70 U/L (46-116); ASPARTATE AMNIOTRANSFERASE,AST 26 U/L (15-37); BILIRUBIN TOTAL 0.2 mg/dL (0.2-1.0); BLOOD UREA NITROGEN,BUN 19 mg/dL (7-18); CALCIUM 9.3 mg/dL (8.5-10.1); CARBON DIOXIDE,CO2 26 mmol/L (21-32); CHLORIDE,CL 103 mmol/L (100-108); CREATININE 0.6 mg/dL (0.6-1.0); ESTIMATED GFR 98 mL/min (>60); GLUCOSE RANDOM 93 mg/dL (74-106); POTASSIUM,K 3.9 mmol/L (3.6-5.2); PROTEIN TOTAL,TP 6.7 g/dL (6.4-8.2); SODIUM,NA 138 mmol/L (140-148); TROPONIN I HIGH SENSITIVITY 9.7 pg/mL (<=60.3)
[2025-03-22 01:09] LABS: ANION GAP 12.9 mmol/L (5.0-14.0)
[2025-03-22 01:20] VITALS: BP 129/69; PULSE 68
[2025-03-22] MEDS: Aluminum Hydroxide/Magnesium Hydroxide/Simethicone Susp 30 ML Cup PO ONE (01:35)
== END 2025-03-22 01:43 | disposition home or self-care (01) ==
LOC: JP.ED 00:12
DX: K21.00 Gastro-esophageal reflux disease with esophagitis, without bleeding (principal); E78.00 Pure hypercholesterolemia, unspecified; E11.9 Type 2 diabetes mellitus without complications; E66.9 Obesity, unspecified; I10 Essential (primary) hypertension; Z88.8 Allergy status to other drugs, medicaments and biological substances; Z91.030 Bee allergy status; Z79.899 Other long term (current) drug therapy; Z79.82 Long term (current) use of aspirin
CPT/HCPCS: 36415; 80053; 84484; 85025; 93005; 99285; A9270